=== PATIENT | female | born 1955 | race Two or more races ===

== ENCOUNTER 2022-02-05 15:43 | Emergency (ER) | payer MEDICARE ==
[~2022-02-05] VITALS: Ht 165.1 cm; Wt 56.4 kg
[2022-02-05] MEDS ORDERED: TOPI25 PO (16:10)
[2022-02-05] MEDS ORDERED: BUSP10TA23 PO (16:10)
[2022-02-05] MEDS ORDERED: MONT-35 PO (16:10)
[2022-02-05] MEDS ORDERED: BUDE10.27 IH (16:10)
[2022-02-05] MEDS ORDERED: PREG75 PO (16:10)
[2022-02-05] MEDS ORDERED: ROPI1TAB13 PO (16:19)
[2022-02-05] MEDS ORDERED: HYDROmorphone 2 MG/ML VIAL IM ONE (17:30)
[2022-02-05] MEDS ORDERED: ONDANSETRON HCL 4 MG/2 ML VIAL IM ONE (17:30)
[2022-02-05] MEDS ORDERED: DIAZEPAM 5 MG TABLET PO ONE (17:30)
[2022-02-05 17:36] LABS: BASOPHILS % (AUTO) 0.2 % (0.0-2.0); EOSINOPHILS % (AUTO) 1.1 % (1.0-6.0); HEMOGLOBIN 14.1 g/dL (12.0-16.0); LYMPHOCYTES # (AUTO) 3.1 K/uL (1.0-4.8); LYMPHOCYTES % (AUTO) 19.2 % (22.0-44.0); MEAN CORPUSCULAR HEMOGLOBIN 30.3 pg (26.0-34.0); MEAN CORPUSCULAR HGB CONC 32.8 G/dL (31.0-37.0); MEAN CORPUSCULAR VOLUME 92 fL (80-100); MONOCYTES # (AUTO) 1.2 K/uL (0.1-1.0); MONOCYTES % (AUTO) 7.4 % (2.0-9.0); NEUTROPHILS # (AUTO) 11.5 K/uL (1.8-7.7); NEUTROPHILS % (AUTO) 72.1 % (40.0-70.0); PLATELET COUNT (AUTO) 429 K/uL (150-450); RED BLOOD CELL COUNT(AUTO) 4.65 MIL/uL (4.00-5.20); RED CELL DISTRIBUTION WIDTH 13.5 % (11.5-14.5)
[2022-02-05 17:42] LABS: ANION GAP 8 mmol/L (8-16); CALCIUM, TOTAL 8.7 mg/dL (8.8-10.5); CARBON DIOXIDE 28 mmol/L (22-29); CHLORIDE 108 mmol/L (98-107); CREATININE 0.63 mg/dL (0.60-1.30); GLOMERULAR FILTR. RATE CALC > 60 mL/min (>60); GLUCOSE,RANDOM 93 mg/dL (70-110); POTASSIUM 3.9 mmol/L (3.5-5.1); SODIUM SERUM 144 mmol/L (136-145); UREA NITROGEN, BLOOD 10 mg/dL (7-18)
[2022-02-05 17:47] LABS: ALANINE AMINOTRANSFERASE 24 U/L (12-78); ALBUMIN 2.7 g/dL (3.4-5.0); ALKALINE PHOSPHATASE 103 U/L (46-116); ASPARTATE AMINOTRANSFERASE 14 U/L (15-37); BILIRUBIN,TOTAL 0.2 mg/dL (0.1-1.0); TOTAL PROTEIN, SERUM 6.5 g/dL (6.4-8.2)
[2022-02-05 17:56] LABS: COVID AG,FIA SOURCE NASOPHARYNGEAL
[2022-02-05 18:16] LABS: INFLUENZA TYPE A NEGATIVE FOR TYPE A (NEGATIVE); INFLUENZA TYPE B NEGATIVE FOR TYPE B (NEGATIVE)
[2022-02-05] MEDS ORDERED: NYST100033 PO (20:05)
[2022-02-05] MEDS ORDERED: HYDR-4723 PO (20:05)
[2022-02-05] MEDS ORDERED: ALBU8.5H8 IH (20:05)
[2022-02-05 20:09] VITALS: BP 134/88
== END 2022-02-05 20:46 | disposition home or self-care (01) ==
LOC: EDBD 15:43 → EMS 15:43
DX: G24.3 Spasmodic torticollis (principal); J44.1 Chronic obstructive pulmonary disease with (acute) exacerbation; B37.9 Candidiasis, unspecified; J44.9 Chronic obstructive pulmonary disease, unspecified; F17.210 Nicotine dependence, cigarettes, uncomplicated; Z79.899 Other long term (current) drug therapy; Z20.822 Contact with and (suspected) exposure to COVID-19
CPT/HCPCS: 36415; 71045; 80053; 84484; 85025; 87426; 87804; 93005; 96372; 99285; J1170; J2405